=== PATIENT | male | born 1955 | race Caucasian/White ===

== ENCOUNTER 2016-10-20 16:08 | Emergency (ER) | payer MEDICARE, OTHER ==
--- NOTE | ~2016-10-20 | CR72 ---
[facility]. [facility] A Service of [facility] & [facility] RADIOLOGY TEXT RESULTS PATIENT: OLAYINKA TORRES LOCATION: SED : 59 UNIT #: [id number] AGE: [address]: Karla Borrego SEX: M ORDER DR: [id number] [address] [address] [id number] E MR#: [id number] Acc #: [id number] NAME: OLAYINKA TORRES : 1955 SEX: M STUDY DATE/TIME: 10/20/2016 16:55 UNIT: SED ROOM: STUDY DESCRIPTION: CR Chest Single View Portable Attending Physician: Karla Borrego Pa-C Ordering Physician: Karla Borrego Pa-C Primary Care Physician: Dennis Woods M.D. MEDICAL IMAGING REPORT This report is preliminary unless electronic signature is present. EXAM Portable chest 10/20/2016 HISTORY Shortness of breath left side chest and abdomen pain for 1 week with no known injury. Benign essential hypertension. Coronary artery disease and myocardial infarction diabetes. FINDINGS The heart is normal in size. There is poor inspiratory result with bibasilar atelectasis. The lungs are otherwise clear. There are no pleural effusions. IMPRESSION No active pulmonary disease. Dictated by... Javier Babin M.D. THIS IS AN ELECTRONICALLY VERIFIED REPORT Javier Babin M.D. at 10/21/2016 2:12 PM KRT/rosario TD: 10/20/2016 20:20 JOB #: [id number] MEDICAL IMAGING REPORT Page 1 of 1
--- NOTE | ~2016-10-20 | CT2 ---
[facility] A Service of [facility] RADIOLOGY TEXT RESULTS PATIENT: OLAYINKA TORRES LOCATION: SED : 59 UNIT #: [id number] AGE: [address]: Karla Borrego SEX: M ORDER DR: [id number] [address] [address] [id number] E MR#: [id number] Acc #: [id number] NAME: OLAYINKA TORRES : 1955 SEX: M STUDY DATE/TIME: 10/20/2016 17:04 UNIT: SED ROOM: STUDY DESCRIPTION: CT Abd and Pelv W Cont Attending Physician: Karla Borrego Pa-C Referring Physician: Christopher Carlson M.D. Ordering Physician: Karla Borrego Pa-C Primary Care Physician: Dennis Woods M.D. MEDICAL IMAGING REPORT This report is preliminary unless electronic signature is present. EXAM CT of the abdomen and pelvis with contrast. DATE OF EXAM 10/20/2016 HISTORY Left-sided abdominal pain for 1 week. Diabetes and hypertension. TECHNIQUE Spiral CT was performed through the abdomen and pelvis following intravenous contrast administration only, as per clinician request. This CT exam was performed with one or more of the following radiation dose reduction techniques: automatic exposure control, adjustment of mA and/or kV according to patient size, and iterative reconstruction. FINDINGS The exam is limited by the lack of oral contrast. There is fatty infiltration of the liver. The spleen, pancreas, gallbladder and biliary tree and adrenal glands are normal. There is no evidence of hydronephrosis, but there is a 3 mm nonobstructing stone located in the proximal right ureter at the level of the right ureteropelvic junction. Clinical correlation is recommended. The left kidney demonstrates a 1 cm cyst. PELVIS FINDINGS: There is colonic diverticulosis without evidence of diverticulitis. The gut is, otherwise, unremarkable. No adenopathy is seen and there is no free fluid in the pelvis. Central calcifications are seen within the prostate. There are bilateral inguinal hernias, containing only fat. The appendix is normal. IMPRESSION [facility] A Service of [facility] & [facility] RADIOLOGY TEXT RESULTS PATIENT: OLAYINKA TORRES LOCATION: [facility] : [birth year] UNIT #: [id number] AGE: [address]: Karla Borrego SEX: M ORDER DR: 1. There is no evidence of hydronephrosis, but there is a 3 mm stone in the proximal right ureter at the level of the right ureteropelvic junction. Clinical correlation recommended. 2. Left renal cyst. 3. Fatty infiltration of the liver. 4. Diverticulosis, no evidence of diverticulitis. 5. Bilateral inguinal hernias containing only fat. 6. Exam is somewhat limited by the lack of oral contrast. 7. Normal appendix. Dictated by... Javier Babin M.D. THIS IS AN ELECTRONICALLY VERIFIED REPORT Javier Babin M.D. at 10/21/2016 2:12 PM MICHAEL/olga TD: 10/20/2016 20:38 JOB #: [id number] MEDICAL IMAGING REPORT Page 1 of 1
[~2016-10-20 16:08] MED LIST: AMLODIPINE BESY10 MG PO; APRESOLINE; ASPIRIN; ASPIRIN81 M2 PO; BACLOFEN10 MG PO; CIPRO PO; CLOPIDOGREL75 MG PO; CRESTOR; CRESTOR PO; DOC-Q-LACE100 MG PO; FLOMAX0.4 M1 PO; GLUCOTROL; GLUCOTROL PO; HYDRALAZINE HCL25 MG PO; HYDROCHLOROTHIA25 MG PO; HYDROCODONE/APA1 T16 PO; LIORESAL10 MG PO; LISINOPRIL5 MG PO; METFORMIN HCL500 M1 PO; METOPROLOL TAR100 MG PO; METOPROLOL TAR25 MG PO; MOBIC; MOBIC PO; OMEPRAZOLE20 M2 PO; PEPCID40 MG PO; PEPTO-BISM525 MG/15 PO; PROTONIX PO; TOPROL XL100 MG PO; TYLENOL EXTRA500 M1 PO; VIAGRA PO; VIAGRA25 MG; VOLTAREN75 MG PO; ZOLOFT50 MG PO
[2016-10-20 16:41] LABS: BASOPHIL# 0.1 X10e3 (0-0.3); BASOPHIL% 0.8 % (0-2.5); EOSINOPHIL# 0.2 X10e3 (0-0.7); HEMATOCRIT 42.1 % (38.0-50.0); HEMOGLOBIN 14.3 gm/dL (13.0-16.0); LYMPHOCYTE# 2.3 X10e3 (1.0-3.5); LYMPHOCYTE% 22.9 % (17.0-45.0); MEAN CELL VOLUME 86.9 FL (83-96); MEAN CORPUSCULAR HEMOGLOBIN 29.5 PG (28-34); MEAN CORPUSCULAR HGB CONC 33.9 g/dL (30-36); MEAN PLATELET VOLUME 8.1 FL (6.5-11.5); MONOCYTE# 0.8 X10e3 (0-1.0); MONOCYTE% 7.5 % (3.0-12.0); NEUTROPHIL# 6.7 X10e3 (1.5-7.1); NEUTROPHIL% 66.8 % (40-75); PLATELET COUNT 211 X10e3 (140-420); RED BLOOD COUNT 4.85 X10e (3.90-5.60); RED CELL DISTRIBUTION WIDTH 14.1 % (11.0-15.5)
[2016-10-20 16:50] LABS: DIFF IND NO
[2016-10-20 16:54] LABS: ALBUMIN SERUM 4.1 g/dL (3.5-5.0); BILIRUBIN,TOTAL 0.3 mg/dL (0.2-2.0); BUN/CREATININE RATIO 23.75; CALCIUM SERUM 9.2 mg/dL (8.4-10.2); CREATININE SERUM 0.8 mg/dL (0.6-1.4); GLOM FILT RATE Estimated 97.8 mL/min (>60); POTASSIUM 3.2 mmol/L (3.5-5.1); PROTEIN TOTAL SERUM 7.8 g/dL (6.0-8.3)
[2016-10-20 19:05] LABS: URINE SOURCE CLEAN CATCH
[2016-10-20 19:08] LABS: URINE APPEARANCE CLEAR; URINE BILIRUBIN NEG (NEG); URINE BLOOD TRACE-INTACT (NEG); URINE COLOR YELLOW; URINE GLUCOSE NEG (NORM); URINE KETONE NEG (NEG); URINE LEUKOCYTE ESTERASE TRACE (NEG); URINE NITRATE NEG (NEG); URINE PH 6.5 (5-8); URINE PROTEIN TRACE (NEG); URINE SPECIFIC GRAVITY <=1.005 (1.003-1.035); URINE UROBILINOGEN 0.2 MG/DL (NORM)
[2016-10-20 19:10] LABS: MICRO INDICATED? YES
[2016-10-20 19:13] LABS: URINE BACTERIA NEG (NEG); URINE SQUAMOUS EPITHELIAL CELL FEW /[HPF]; URINE WBC 0-2 /[HPF] (0-5)
== END 2016-10-20 19:26 | disposition home or self-care (01) ==
LOC: SED 16:08
PROVIDERS: Physician Assistant
DX: N20.1 Calculus of ureter (principal); K40.20 Bilateral inguinal hernia, without obstruction or gangrene, not specified as recurrent; F17.210 Nicotine dependence, cigarettes, uncomplicated; E78.5 Hyperlipidemia, unspecified; F32.9 Major depressive disorder, single episode, unspecified; Z85.46 Personal history of malignant neoplasm of prostate
CPT/HCPCS: 36415; 71010; 74177; 80053; 81003; 83690; 85025; 94640; 96361; 96374; 96375; 99284; J2270; J2405; Q9967